=== PATIENT | female | born 1975 | race Caucasian/White ===

== ENCOUNTER 2016-08-22 08:40 | Emergency (ER) | payer SELFPAY ==
[~2016-08-22] VITALS: Ht 165.1 cm; Wt 101.6 kg
[2016-08-22] MEDS ORDERED: NF-LAMO200 PO (09:08)
[2016-08-22] MEDS ORDERED: ARPZ20T PO (09:08)
[2016-08-22] MEDS ORDERED: MELO15TA39 PO (09:08)
[2016-08-22] MEDS ORDERED: OXCA150T3 PO (09:08)
[2016-08-22] MEDS ORDERED: SERT100T PO (09:08)
[2016-08-22] MEDS: LIDOCAINE 1% INJ 20 ML (XYLOCAINE) VIAL ONE (10:40)
--- NOTE | 2016-08-22 10:47 | ED Integumentary General ---
General Chief Complaint: Bite-Animal/Human/Insect Stated Complaint: POSS SPIDER BITE LEFT LEG Nursing Triage Note: PT AMBULATES TO ROOM 9 CO OF SPIDER BITE TO L THIGH APPROX 10DAYS AGO, AREA IS REDDEND APPROX 8CM AND HAS OPEN AREA APPROX .5CM IN CENTER OF AREA. PT CO OF PAIN TO AREA Source: patient Exam Limitations: no limitations History of Present Illness Time seen by provider: 10:43 Initial Comments The patient is a 41-year-old white female who presents with a complaint of possible spider bite on her left thigh. She reports that this is been present for 10 days to 2 weeks. Has been getting larger. It drains some creamy material from time to time. It has become quite painful. She also states that she has had 2 previous MRSA boils. These were apparently in the armpits. Timing/Duration: week, getting worse Location: extremities Allergies and Home Medications Home Medications Aripiprazole 20 Mg Tablet, 20 MG PO BID, (Reported) Lamotrigine 200 Mg Tab, 200 MG PO BID, (Reported) Meloxicam 15 Mg Tablet, 15 MG PO DAILY, (Reported) Oxcarbazepine 150 Mg Tablet, 150 MG PO BID, (Reported) Sertraline HCl 100 Mg Tablet, 100 MG PO BID, (Reported) Constitutional: see HPI EENTM: no symptoms reported Respiratory: no symptoms reported Cardiovascular: no symptoms reported Gastrointestinal: no symptoms reported Genitourinary: no symptoms reported Skin: see HPI Past Tgblcmv-Fezzzc-Kvvoli Hx Patient Social History Alcohol Use: Denies Use Recreational Drug Use: No Smoking Status: Never a Smoker Recent Foreign Travel: No Contact w/Someone Who Travel: No Recent Infectious Disease Expo: No Immunizations Up To Date Tetanus Booster (TDap): Less than 5yrs Physical Exam Vital Signs Vital Sign - Last 12Hours 08/22/16 08:50 Temp 97.9 Pulse 78 Resp 18 B/P (MAP) 159/97 Pulse Ox 100 Capillary Refill : Less Than 3 Seconds General Appearance: mild distress HEENT: normal ENT inspection Neck: non-tender, full range of motion, supple, normal inspection Respiratory: chest non-tender, lungs clear, normal breath sounds, no respiratory distress, no accessory muscle use Comments There is a tennis ball sized red and painful somewhat fluctuant mass at the distal quadriceps. There is a central papule with opening and some serosanguineous fluid is expressed at palpation. Progress/Results/Core Measures Results/Orders My Orders Orders - COLT NIETO MD Lidocaine 1% Injection (Xylocaine 1% Inj (08/22/16 10:20) Vital Signs/I&O Vital Sign - Last 12Hours 08/22/16 08:50 Temp 97.9 Pulse 78 Resp 18 B/P (MAP) 159/97 Pulse Ox 100 Blood Pressure Mean: 117 Departure Communication Progress Notes The area is prepped with Hibiclens. 3 mL of 1 percent Xylocaine are instilled with a 25-gauge needle. The area is incised with an 11 scalpel blade material begins to flow immediately. Cultures are acquired. With squeezing considerable amount of sanguinopurulent material is evacuated. The area is explored with a hemostat and more material was obtained. His then packed with 10 inches or more of 1/2 inch iodoform gauze. Dressings were then applied. The patient was quite cooperative during the procedure. Impression Impression: Primary Impression: abscess likely MRSA Disposition: 01 HOME, SELF-CARE Condition: Improved Departure-Patient Inst. Decision time for Depature: 10:49 Referrals: NO,LOCAL PHYSICIAN (PCP) Primary Care Physician Patient Instructions: Methicillin-Resistant Staphylococcus aureus (MRSA) Add. Discharge Instructions: All discharge instructions reviewed with patient and/or family. Voiced understanding. Take antibiotic as prescribed. Keep wound clean and dry. Remove approximately 1 inch of the gauze daily and redress. Return to ER if needed for questions about healing. This would be called a wound check. Scripts Sulfamethoxazole/Trimethoprim (Bactrim Ds Tablet) 1 Each Tablet 1 EACH PO twice a day, #20 TAB Prov: COLT NIETO MD 08/22/16 COLT NIETO MD Aug 22, 2016 10:47
[2016-08-22] MEDS ORDERED: SULF1TAB35 PO (10:53)
[2016-08-22 11:04] VITALS: BP 142/88
[2016-08-23] MEDS ORDERED: CLIN300C11 PO (08:54)
[2016-08-23] MEDS ORDERED: HYDR-3812 PO (09:15)
== END 2016-08-22 11:04 | disposition home or self-care (01) ==
LOC: EDUNIT# 08:40 → ER 08:48
DX: L02.416 Cutaneous abscess of left lower limb (principal); Z86.14 Personal history of Methicillin resistant Staphylococcus aureus infection
CPT/HCPCS: 10060; 87070; 87077; 87186; 87205

== ENCOUNTER 2016-08-23 07:17 | Emergency (ER) | payer SELFPAY ==
[~2016-08-23] VITALS: Ht 165.1 cm; Wt 101.6 kg
[~2016-08-23 07:17] MED LIST: ARPZ20T PO; MELO15TA39 PO; NF-LAMO200 PO; OXCA150T3 PO; SERT100T PO; SULF1TAB35 PO
--- NOTE | 2016-08-23 08:53 | ED Integumentary General ---
General Chief Complaint: Skin/Wound Problems Stated Complaint: INFECTION IN LEG/FACIAL SWELLING Source: patient, family Exam Limitations: no limitations History of Present Illness Time seen by provider: 08:44 Initial Comments Patient was seen in the ER yesterday and had an abscess lanced in her left thigh just above the patella. She is change the dressings fine and started her Bactrim yesterday but today she feels that her face is swollen. She has some scabs on either side of her face and says she has cold sores from time to time. She is concerned that she is having quite a bit of pain from the site of abscess as well as she is worried about her face being swollen. She says she has no problems breathing or swallowing her own secretions does not feel scratchy or itchy throat. She has no tongue swelling and no dental pain or infection in her gums. She denies fever, nausea, vomiting, fatigue, rash. Allergies and Home Medications Allergies Coded Allergies: No Known Drug Allergies (Unverified , 08/23/16) Home Medications Aripiprazole 20 Mg Tablet, 20 MG PO BID, (Reported) Clindamycin HCl 300 Mg Capsule, 600 MG PO BID for 6 Days, #24 Ref 0 Prescribed by: TAYLA RUDD on 08/23/16 0854 Hydrocodone/Acetaminophen 1 Each Tablet, 1 EACH PO Q6H PRN for PAIN-MODERATE TO SEVERE, #10 Ref 0 Prescribed by: TAYLA RUDD on 08/23/16 0915 Lamotrigine 200 Mg Tab, 200 MG PO BID, (Reported) Meloxicam 15 Mg Tablet, 15 MG PO DAILY, (Reported) Oxcarbazepine 150 Mg Tablet, 150 MG PO BID, (Reported) Sertraline HCl 100 Mg Tablet, 100 MG PO BID, (Reported) Sulfamethoxazole/Trimethoprim 1 Each Tablet, 1 EACH PO twice a day, #20 Prescribed by: COLT NIETO on 08/22/16 1053 Constitutional: No chills, No diaphoresis, No dizziness, No fever, No malaise, No weakness EENTM: No blurred vision, No double vision, No ear pain, No eye pain, No hearing loss, No hoarseness, No mouth pain, No mouth swelling, No nose congestion, No throat swelling Respiratory: No dyspnea on exertion, No short of breath, No stridor, No wheezing Cardiovascular: No chest pain, No syncope Gastrointestinal: No abdominal pain, No melena, No nausea Genitourinary: No dysuria, No frequency Musculoskeletal: see HPI, other (incision site pain better than yesterday.) Skin: No pruritus, No rash Psychiatric/Neurological: Denies Headache, Denies Numbness, Denies Paresthesia Past Exidwki-Kseely-Jzzvjw Hx Patient Social History Alcohol Use: Denies Use Recreational Drug Use: No Recent Foreign Travel: No Contact w/Someone Who Travel: No Immunizations Up To Date Tetanus Booster (TDap): Less than 5yrs Physical Exam Vital Signs Vital Sign - Last 12Hours 08/23/16 08:05 Temp 97.5 Pulse 81 Resp 20 B/P (MAP) 126/81 Pulse Ox 99 Capillary Refill : General Appearance: WD/WN, no apparent distress HEENT: PERRL/EOMI, pharynx normal (no edema or swelling of the tongue or tonsils noted.), No pharyngeal erythema, other (case with mild swelling nontender on the right side especially. Sinuses nontender to palpation. No nasal discharge. No pain.) Neck: non-tender, normal inspection Cardiovascular: regular rate, rhythm, no edema Respiratory: lungs clear, no respiratory distress Gastrointestinal: non tender, soft Extremities: normal range of motion, other (clean dry dressing intact over the distal left thigh. Mildly tender to palpation.) Lymphatic: no adenopathy Progress/Results/Core Measures Results/Orders My Orders Orders - TAYLA RUDD Methylprednisolone Acetate Inj (Depo-Med (08/23/16 09:00) Medications Given in ED Current Medications Medications Dose Ordered Sig/Marcia Route Start Time Stop Time Status Last Admin Dose Admin Methylprednisolone Acetate 40 mg ONCE ONCE IM 08/23/16 09:00 08/23/16 09:01 DC 08/23/16 09:08 40 MG Vital Signs/I&O Vital Sign - Last 12Hours 08/23/16 08/23/16 08:05 09:17 Temp 97.5 97.5 Pulse 81 81 Resp 20 20 B/P (MAP) 126/81 Pulse Ox 99 99 Progress Note #1: Time: 08:49 Progress Note I explained to her this is unlikely traveling representative of a drug allergy but she would be okay to switch to a different antibiotic that'll give coverage against oral pathogens case this is related to dental. We'll also give her Depo-Medrol shot and gave her return precautions against swelling of airway swelling of tongue or inability to swallow or breathe without difficulty. Progress Note #2: Time: 12:11 Progress Note Pharmacy called back stating the patient cannot afford the clindamycin. Told her be okay to just supervisor opening and picking the pain medicine and continue taking the Bactrim. Strict return precautions given. Departure Impression Impression: Primary Impression: Swelling of right side of face Disposition: HOME, SELF-CARE Condition: Stable Departure-Patient Inst. Decision time for Depature: 08:50 Referrals: NO,LOCAL PHYSICIAN (PCP) Primary Care Physician Patient Instructions: Abscess Incision and Drainage (DC) Add. Discharge Instructions: Your facial swelling may just be a reaction to the antibiotics breaking up the bacteria efficiently. It probably does not represent a true allergy to Bactrim. If you're having worsening swelling to the point that you cannot breathe, swallow your secretions, or you feel that your tongue is swelling, or throat is itchy you should take Benadryl and return to the ER immediately. You may stop taking the Bactrim and start taking the clindamycin as soon as you pick it up. Take it with food. It would be reasonable also eat yogurt or take probiotics while on antibiotics. Follow-up within one week with your primary care physician for a wound recheck. All discharge instructions reviewed with patient and/or family. Voiced understanding. Scripts Hydrocodone/Acetaminophen (Hydrocodon -Acetaminophen 5-325) 1 Each Tablet 1 EACH PO Q6H Y for PAIN-MODERATE TO SEVERE, #10 TAB 0 Refills Prov: TAYLA RUDD 08/23/16 Clindamycin HCl (Clindamycin HCl) 300 Mg Capsule 600 MG PO BID for 6 Days, #24 CAP 0 Refills Prov: TAYLA RUDD 08/23/16 Copy Copies To 1: ALO CAMPBELL TITUS J Aug 23, 2016 08:53
[2016-08-23] MEDS ORDERED: CLIN300C11 PO (08:54)
[2016-08-23] MEDS ORDERED: methylPREDNISolone 40 MG/ML (DEPO MEDROL) VIAL IM ONE (09:00)
[2016-08-23] MEDS ORDERED: HYDR-3812 PO (09:15)
[2016-08-23 09:17] VITALS: BP 126/81
[2016-08-24] MEDS ORDERED: HYDR-3812 PO (11:29)
== END 2016-08-23 09:11 | disposition home or self-care (01) ==
LOC: EDUNIT# 07:17 → ER 07:19
DX: R22.0 Localized swelling, mass and lump, head (principal)
CPT/HCPCS: 99282

== ENCOUNTER 2016-08-24 08:49 | Emergency (ER) | payer SELFPAY ==
[~2016-08-24] VITALS: Ht 167.6 cm; Wt 99.8 kg
[~2016-08-24 08:49] MED LIST changes: +CLIN300C11 PO; +HYDR-3812 PO
--- NOTE | 2016-08-24 09:09 | ED Integumentary General ---
General Chief Complaint: Skin/Wound Problems Stated Complaint: R FACIAL SWELLING Source: patient Exam Limitations: no limitations History of Present Illness Time seen by provider: 09:07 Initial Comments Patient presents again with similar facial swelling as yesterday. She states is gotten worse and now has opened up along her lip and drained whitish fluid. She had a cold sore there a few days ago and she now feels an area of hardness on her right upper lip. She has not had any fevers chills nausea or vomiting. Boil on her left leg however is improving considerably. She is been cooperative taking her antibiotics and continue the Bactrim as she was unable to afford the clindamycin. Allergies and Home Medications Allergies Coded Allergies: No Known Drug Allergies (Unverified , 08/23/16) Home Medications Aripiprazole 20 Mg Tablet, 20 MG PO BID, (Reported) Clindamycin HCl 300 Mg Capsule, 600 MG PO BID for 6 Days, #24 Ref 0 Prescribed by: TAYLA RUDD on 08/23/16 0854 Hydrocodone/Acetaminophen 1 Each Tablet, 1 EACH PO Q6H PRN for PAIN-MODERATE TO SEVERE, #10 Ref 0 Prescribed by: TAYLA RUDD on 08/23/16 0915 Hydrocodone/Acetaminophen 1 Each Tablet, 1 EACH PO Q6H PRN for pain, #15 Ref 0 Prescribed by: TAYLA RUDD on 08/24/16 1129 Lamotrigine 200 Mg Tab, 200 MG PO BID, (Reported) Meloxicam 15 Mg Tablet, 15 MG PO DAILY, (Reported) Oxcarbazepine 150 Mg Tablet, 150 MG PO BID, (Reported) Sertraline HCl 100 Mg Tablet, 100 MG PO BID, (Reported) Sulfamethoxazole/Trimethoprim 1 Each Tablet, 1 EACH PO twice a day, #20 Prescribed by: COLT NIETO on 08/22/16 1053 Constitutional: No chills, No diaphoresis, No fever EENTM: see HPI, No ear pain, No eye pain, No hoarseness, No nose pain, No throat pain, No throat swelling Respiratory: No cough, No short of breath Cardiovascular: No palpitations, No syncope Gastrointestinal: No abdominal pain, No constipation, No diarrhea, No nausea Genitourinary: No discharge Musculoskeletal: No back pain, No joint pain Skin: see HPI Psychiatric/Neurological: Anxiety, Denies Headache, Denies Numbness, Denies Paresthesia Past Glpivhu-Qfemey-Hsialp Hx Patient Social History Alcohol Use: Occasionally Uses Recreational Drug Use: No Smoking Status: Current Someday Smoker Type Used: Cigarettes Recent Foreign Travel: No Contact w/Someone Who Travel: No Recent Hopitalizations: No Immunizations Up To Date Tetanus Booster (TDap): Less than 5yrs Surgeries Surgeries: Adenoidectomy, Tonsillectomy Physical Exam Vital Signs Vital Sign - Last 12Hours 08/24/16 08:55 Temp 98.5 Pulse 74 Resp 18 B/P (MAP) 148/87 Pulse Ox 98 Capillary Refill : General Appearance: WD/WN, no apparent distress HEENT: PERRL/EOMI, TMs normal, other (bilateral cillosis with red swollen right sided upper lips of her mouth and a small punctate opening with whitish fluid expressed.) Neck: non-tender, supple, normal inspection Cardiovascular: normal peripheral pulses, regular rate, rhythm Respiratory: lungs clear, no respiratory distress Gastrointestinal: normal bowel sounds, soft 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 Bedside US) I&D : Blade Size: 11 I & D Procedure: betadine prep (alcohol) Progress 50-50 mix of 1% lidocaine with epinephrine and 0.5% Marcaine without epinephrine. Injected 2 cc in the lip and 5 cc at the alveolar nerve on the right mandible. site was then cleaned with Betadine and alcohol. 11 blade was used to gopi a 0.4 cm long incision and approximately 2 cc of purulent material was expressed. Site was irrigated with 5 cc of normal saline and dressed with a light bandage.the patient tolerated the procedure very well. Progress bedside ultrasound of right lip with a small 1-3 cc pocket of fluid superior to the orbicularis jaime right lateral face. Consistent with abscess Progress/Results/Core Measures Results/Orders My Orders Orders - TAYLA RUDD Lidocaine/Epi 2% 1:100,000 (Xylocaine/Ep (08/24/16 09:15) Bupivacaine 0.5% Injection (Sensorcaine (08/24/16 09:15) Fentanyl Injection (Sublimaze Injection (08/24/16 09:15) Medications Given in ED Current Medications Medications Dose Ordered Sig/Marcia Route Start Time Stop Time Status Last Admin Dose Admin Bupivacaine HCl 30 ml ONCE ONCE INJ 08/24/16 09:15 08/24/16 09:16 DC 08/24/16 09:20 30 ML Fentanyl Citrate 25 mcg Q1H PRN IM 08/24/16 09:15 08/24/16 11:41 DC 08/24/16 09:20 25 MCG Lidocaine/ Epinephrine 20 ml ONCE ONCE INJ 08/24/16 09:15 08/24/16 09:16 DC 08/24/16 09:21 20 ML Vital Signs/I&O Vital Sign - Last 12Hours 08/24/16 08/24/16 08:55 11:40 Temp 98.5 Pulse 74 74 Resp 18 18 B/P (MAP) 148/87 Pulse Ox 98 98 Departure Impression Impression: Primary Impression: Abscess Disposition: 01 HOME, SELF-CARE Condition: Improved Departure-Patient Inst. Decision time for Depature: 11:27 Referrals: NO,LOCAL PHYSICIAN (PCP) Primary Care Physician Patient Instructions: Abscess Incision and Drainage (DC) Add. Discharge Instructions: Please continue the next 7-8 days of your antibiotics until they're completed. Keep the wound clean and dry with soap and water. Do not occlude the wound with Vaseline or any kind of antibiotic creams. A light gauze dressing or Band-Aid will be sufficient. Change dressing as needed for soilage. Follow-up if you're having fevers, nausea, vomiting or worsening symptoms. You will be given pain meds to be taken if Tylenol and Motrin and ice do not work. All discharge instructions reviewed with patient and/or family. Voiced understanding. Scripts Hydrocodone/Acetaminophen (Hydrocodon -Acetaminophen 5-325) 1 Each Tablet 1 EACH PO Q6H Y for pain, #15 TAB 0 Refills Prov: TAYLA RUDD 08/24/16 Work/School Note: Work Release Form Date Seen in the Emergency Department: Aug 24, 2016 Return to Work: Aug 26, 2016 TAYLA RUDD Aug 24, 2016 09:09
[2016-08-24] MEDS ORDERED: fentaNYL INJECTION 100 MCG/2 ML AMP IM PRN (09:15)
[2016-08-24] MEDS ORDERED: BUPIVACAINE 0.5% 30 ML (SENSORCAINE) VIAL INJ ONE (09:15)
[2016-08-24] MEDS ORDERED: LIDOCAINE/EPI 2% 1:100,00 (XYLOCAINE) 20 ML VIAL INJ ONE (09:15)
[2016-08-24] MEDS ORDERED: HYDR-3812 PO (11:29)
[2016-08-24 11:40] VITALS: BP 148/87
== END 2016-08-24 11:40 | disposition home or self-care (01) ==
LOC: EDUNIT# 08:49 → ER 08:50
DX: K13.0 Diseases of lips (principal); F17.210 Nicotine dependence, cigarettes, uncomplicated
CPT/HCPCS: 10060

== ENCOUNTER 2016-11-02 02:45 | Emergency (ER) | payer OTHER ==
[~2016-11-02] VITALS: Ht 165.1 cm; Wt 101.2 kg
[2016-11-02 03:36] LABS: BILIRUBIN,URINE NEGATIVE (NEGATIVE); KETONES,URINE NEGATIVE (NEGATIVE); LEUKOCYTE ESTERASE ,URINE NEGATIVE (NEGATIVE); NITRITE,URINE NEGATIVE (NEGATIVE); PH,URINE 6 (5-9); PROTEIN,URINE NEGATIVE (NEGATIVE); UROBILINOGEN,URINE NORMAL (NORMAL)
[2016-11-02 03:54] LABS: BASOPHILS # (AUTO) 0.1 10^3/uL (0.0-0.1); BASOPHILS % (AUTO) 1 % (0-10); EOSINOPHILS # (AUTO) 0.3 10^3/uL (0.0-0.3); EOSINOPHILS % (AUTO) 3 % (0-10); LYMPHOCYTES # (AUTO) 2.5 X 10^3 (1.0-4.0); LYMPHOCYTES % (AUTO) 23 % (12-44); MEAN CORPUSCULAR HEMOGLOBIN 31 PG (25-34); MEAN CORPUSCULAR HGB CONC 34 G/DL (32-36); MEAN CORPUSCULAR VOLUME 94 FL (80-99); MEAN PLATELET VOLUME 10.1 FL (7.4-10.4); MONOCYTES # (AUTO) 0.9 X 10^3 (0.0-1.0); MONOCYTES % (AUTO) 8 % (0-12); NEUTROPHILS # (AUTO) 7.2 X 10^3 (1.8-7.8); NEUTROPHILS % (AUTO) 66 % (42-75); PLATELET COUNT 256 10^3/uL (130-400); RED BLOOD COUNT 4.53 10^6/uL (4.35-5.85)
[2016-11-02] MEDS ORDERED: ONDANSETRON 4 MG/2 ML (SDV) Z0FRAN IVP ONE (04:00)
[2016-11-02] MEDS ORDERED: fentaNYL INJECTION 100 MCG/2 ML AMP IVP ONE (04:00)
[2016-11-02 04:19] LABS: ALANINE AMINOTRANSFERASE 12 U/L (0-55); ALBUMIN 4.1 GM/DL (3.2-4.5); ANION GAP 12 MMOL/L (5-14); ASPARTATE AMINO TRANSFERASE 15 U/L (5-34); BILIRUBIN,TOTAL 0.3 MG/DL (0.1-1.0); BLOOD UREA NITROGEN 14 MG/DL (7-18); BUN/CREATININE RATIO 20; CALCIUM 9.5 MG/DL (8.5-10.1); CARBON DIOXIDE 18 MMOL/L (21-32); CHLORIDE 108 MMOL/L (98-107); CREATININE SERUM 0.69 MG/DL (0.60-1.30); GFR ESTIMATED > 60; GLUCOSE 101 MG/DL (70-105); LIPASE 823 U/L (8-78); POTASSIUM 3.9 MMOL/L (3.6-5.0); SODIUM 138 MMOL/L (135-145); TOTAL PROTEIN 7.1 GM/DL (6.4-8.2)
--- NOTE | 2016-11-02 04:29 | ED Abdominal Pain ---
General Chief Complaint: Abdominal/GI Problems Stated Complaint: R AB PAIN Nursing Triage Note: Presents to ER with hx of abd pain in back that moved to midline abd right side a few hours ago. Sepsis Screen: No Definite Risk Source of Information: Patient Exam Limitations: No Limitations History of Present Illness Time Seen By Provider: 02:57 Initial Comments This 41-year-old woman presents to the emergency room with complaints of pain that started in the right lower back and migrated to the right lower quadrant. She reports her pain as 10. Pain started couple of hours prior to arrival. She reports having diarrhea for a few days. She is nauseated without vomiting. She denies fever. Denies dysuria or hematuria. Allergies and Home Medications Allergies Coded Allergies: No Known Drug Allergies (Unverified , 08/23/16) Home Medications Aripiprazole 20 Mg Tablet, 20 MG PO DAILY, (Reported) Desvenlafaxine Succinate 100 Mg Tab.er.24h, 100 MG PO DAILY, (Reported) Lamotrigine 200 Mg Tab, 200 MG PO BID, (Reported) Levothyroxine Sodium 50 Mcg Tablet, 50 MCG PO DAILY, (Reported) Metformin HCl 1,000 Mg Tablet, 1,000 MG PO BID, (Reported) Pantoprazole Sodium 40 Mg Granpkt.dr, 40 MG PO DAILY, (Reported) Sertraline HCl 100 Mg Tablet, 100 MG PO BID, (Reported) Trazodone HCl 300 Mg Tablet, 300 MG PO HS, (Reported) [Pristiq] , (Reported) Review of Systems Constitutional: no symptoms reported EENTM: No Symptoms Reported Respiratory: No Symptoms Reported Cardiovascular: No Symptoms Reported Gastrointestinal: See HPI Genitourinary: No Symptoms Reported Musculoskeletal: no symptoms reported Skin: no symptoms reported Psychiatric/Neurological: No Symptoms Reported Endocrine: No Symptoms Reported Past Rneojvy-Uizybe-Axstnk Hx Patient Social History Alcohol Use: Denies Use Recreational Drug Use: No Smoking Status: Current Everyday Smoker Type Used: Cigarettes 2nd Hand Smoke Exposure: Yes Recent Foreign Travel: No Contact w/Someone Who Travel: No Recent Infectious Disease Expo: No Recent Hopitalizations: No Immunizations Up To Date Tetanus Booster (TDap): Less than 5yrs Seasonal Allergies Seasonal Allergies: No Surgeries HX Surgeries: Yes Surgeries: Adenoidectomy, Section, Tonsillectomy Respiratory Hx Respiratory Disorders: No Cardiovascular Hx Cardiac Disorders: No Neurological Hx Neurological Disorders: No Reproductive System : No Female Reproductive Disorders: Polycystic Ovarian Dis Genitourinary Hx Genitourinary Disorders: No Gastrointestinal Hx Gastrointestinal Disorders: Yes Gastrointestinal Disorders: Gastroesophageal Reflux Musculoskeletal Hx Musculoskeletal Disorders: No Endocrine Hx Endocrine Disorders: Yes Endocrine Disorders: Hypothyroidsim HEENT HX ENT Disorders: No Cancer Hx Cancer: No Psychosocial Hx Psychiatric Problems: Yes Behavioral Health Disorders: Sleep Difficulties, Bipolar, Depression Physical Exam Vital Signs VS - Last 72 Hours, by Label 11/02/16 11/02/16 03:25 04:03 Temp 98.5 98.5 Pulse 84 Resp 20 B/P (MAP) 140/82 Pulse Ox 96 O2 Delivery Room Air Capillary Refill : Less Than 3 Seconds General Appearance: WD/WN, mild distress HEENT: PERRL/EOMI, normal ENT inspection Neck: normal inspection Respiratory: lungs clear, normal breath sounds, no respiratory distress, no accessory muscle use Cardiovascular: regular rate, rhythm, no edema, no murmur Gastrointestinal: normal bowel sounds, soft, tenderness (scattered tenderness throughout the abdomen most prominent in the central abdomen and epigastrium), other (abdominal bruit heard throughout the abdomen) Extremities: normal inspection, no pedal edema Back: normal inspection, no CVA tenderness Neurologic/Psychiatric: freedom of information officer II-XII nml as tested, no motor/sensory deficits, alert, normal mood/affect, oriented x 3 Skin: normal color, warm/dry Progress/Results/Core Measures Results/Orders Lab Results Laboratory Tests Test 11/02/16 03:30 11/02/16 03:40 Range/Units Urine Color YELLOW Urine Clarity CLEAR Urine pH 6 5-9 Urine Specific Keller 1.015 L 1.016-1.022 Urine Protein NEGATIVE NEGATIVE Urine Glucose (UA) NEGATIVE NEGATIVE Urine Ketones NEGATIVE NEGATIVE Urine Nitrite NEGATIVE NEGATIVE Urine Bilirubin NEGATIVE NEGATIVE Urine Urobilinogen NORMAL NORMAL MG/DL Urine Leukocyte Esterase NEGATIVE NEGATIVE Urine RBC (Auto) NEGATIVE NEGATIVE Urine RBC NONE /HPF Urine WBC NONE /HPF Urine Squamous Epithelial Cells 5-10 /HPF Urine Crystals NONE /LPF Urine Bacteria TRACE /HPF Urine Casts NONE /LPF Urine Mucus NEGATIVE /LPF Urine Culture Indicated NO White Blood Count 11.0 4.3-11.0 10^3/uL Red Blood Count 4.53 4.35-5.85 10^6/uL Hemoglobin 14.2 11.5-16.0 G/DL Hematocrit 42 35-52 % Mean Corpuscular Volume 94 80-99 FL Mean Corpuscular Hemoglobin 31 25-34 PG Mean Corpuscular Hemoglobin Concent 34 32-36 G/DL Red Cell Distribution Width 13.0 10.0-14.5 % Platelet Count 256 130-400 10^3/uL Mean Platelet Volume 10.1 7.4-10.4 FL Neutrophils (%) (Auto) 66 42-75 % Lymphocytes (%) (Auto) 23 12-44 % Monocytes (%) (Auto) 8 0-12 % Eosinophils (%) (Auto) 3 0-10 % Basophils (%) (Auto) 1 0-10 % Neutrophils # (Auto) 7.2 1.8-7.8 X 10^3 Lymphocytes # (Auto) 2.5 1.0-4.0 X 10^3 Monocytes # (Auto) 0.9 0.0-1.0 X 10^3 Eosinophils # (Auto) 0.3 0.0-0.3 10^3/uL Basophils # (Auto) 0.1 0.0-0.1 10^3/uL Sodium Level 138 135-145 MMOL/L Potassium Level 3.9 3.6-5.0 MMOL/L Chloride Level 108 H 98-107 MMOL/L Carbon Dioxide Level 18 L 21-32 MMOL/L Anion Gap 12 5-14 MMOL/L Blood Urea Nitrogen 14 7-18 MG/DL Creatinine 0.69 0.60-1.30 MG/DL Estimat Glomerular Filtration Rate > 60 BUN/Creatinine Ratio 20 Glucose Level 101 70-105 MG/DL Calcium Level 9.5 8.5-10.1 MG/DL Total Bilirubin 0.3 0.1-1.0 MG/DL Aspartate Amino Transf (AST/SGOT) 15 5-34 U/L Alanine Aminotransferase (ALT/SGPT) 12 0-55 U/L Alkaline Phosphatase 31 L 40-136 U/L Total Protein 7.1 6.4-8.2 GM/DL Albumin 4.1 3.2-4.5 GM/DL Lipase 823 H 8-78 U/L My Orders Orders - NANCI CASSIDY MD Ua Culture If Indicated (11/02/16 02:57) Cbc With Automated Diff (11/02/16 03:48) Comprehensive Metabolic Panel (11/02/16 03:48) Lipase (11/02/16 03:48) Saline Lock/Iv-Start (11/02/16 03:48) Fentanyl Injection (Sublimaze Injection (11/02/16 04:00) Ondansetron Injection (Zofran Injectio (11/02/16 04:00) Ct Abdomen/Pelvis W (11/02/16 03:57) Iohexol Injection (Omnipaque 350 Mg/Ml 1 (11/02/16 04:30) Ns (Ivpb) (Sodium Chloride 0.9% Ivpb Bag (11/02/16 04:30) Us Gallbladder [address] (11/02/16 05:26) Medications Given in ED Current Medications Medications Dose Ordered Sig/Marcia Route Start Time Stop Time Status Last Admin Dose Admin Fentanyl Citrate 50 mcg ONCE ONCE IVP 11/02/16 04:00 11/02/16 04:01 DC 11/02/16 04:03 50 MCG Iohexol 100 ml ONCE ONCE IV 11/02/16 04:30 11/02/16 04:31 DC 11/02/16 04:26 100 ML Ondansetron HCl 4 mg ONCE ONCE IVP 11/02/16 04:00 11/02/16 04:01 DC 11/02/16 04:03 4 MG Sodium Chloride 100 ml ONCE ONCE IV 11/02/16 04:30 11/02/16 04:31 DC 11/02/16 04:26 80 ML Vital Signs/I&O Vital Sign - Last 12Hours 11/02/16 11/02/16 03:25 04:03 Temp 98.5 98.5 Pulse 84 Resp 20 B/P (MAP) 140/82 Pulse Ox 96 O2 Delivery Room Air Blood Pressure Mean: 101 Point of Care Testing Urine -Bedside: Negative Progress Note #1: Time: 04:28 Progress Note Patient seen and examined. Fentanyl and Zofran ordered for symptom management. Labs reviewed. Lipase is elevated suggestive of pancreatitis. CT of the abdomen and pelvis is pending. Progress Note #2: Time: 05:31 Progress Note There is questionable gallbladder wall thickening and/or trace pericholecystic fluid. No CT evidence of cholelithiasis. Acute cholecystitis cannot be completely ruled out. Radiologist is calling for right upper quadrant ultrasound for further evaluation. Patient was noted to have point tenderness in the right upper quadrant on reexamination. She also reports having difficulty after eating certain foods recently. She has been previously told she has gallbladder problems. Ultrasound has been ordered to help determine if patient should be admitted to the primary care service for pancreatitis or to surgery for acute cholecystitis. Patient is presently resting comfortably. Progress Note #3: Progress Note Gallbladder ultrasound discussed with the mine technician who reports gallbladder wall thickening and pericholecystic fluid as well as numerous stones. Case reviewed with Dr. Lopez. Admission with antibiotics, npo status, and IV fluids was recommended. Zosyn was started in the emergency room. Diagnostic Imaging Diagonstic Imaging: CT Plain Films/CT/US/NM/MRI: abdomen, pelvis Comments CT abdomen and pelvis with contrast viewed by me and [employer] report reviewed. There is probable thickened vague of the proximal small bowel loops containing. Colitis material. Subtle adjacent fatty infiltration is likely present. Findings are suggestive of enteritis secondary to infectious versus inflammatory etiology with reactive ileus. Questionable gallbladder wall thickening and/or trace pericholecystic fluid no CT evidence of cholelithiasis. Possibility of acute cholecystitis is not ruled out. Right upper quadrant ultrasound is recommended. Departure Impression Impression: Primary Impression: Acute cholecystitis Additional Impressions: Acute pancreatitis Qualified Codes: K85.10 - Biliary acute pancreatitis without necrosis or infection Cholelithiasis Qualified Codes: K80.00 - Calculus of gallbladder with acute cholecystitis without obstruction Disposition: 09 ADMITTED INPATIENT Condition: Improved Admissions Decision to Admit Reason: Admit from ER (General) Decision to Admit/Date: Nov 02, 2016 Time/Decision to Admit Time: 04:25 Departure-Patient Inst. Referrals: IRENE RENEE (PCP/Family) Primary Care Physician NANCI CASSIDY MD Nov 02, 2016 04:29
[2016-11-02] MEDS ORDERED: NS 100 ML (IVPB) BAG IV ONE (04:30)
[2016-11-02] MEDS ORDERED: IOHEXOL 350 MG/ML 100 ML (OMNIPAQUE 350) VIAL IV ONE (04:30)
[2016-11-02] MEDS ORDERED: TRAZ300T3 PO (04:31)
[2016-11-02] MEDS ORDERED: PANT40SU PO (04:31)
[2016-11-02] MEDS ORDERED: DESV100T PO (04:31)
[2016-11-02] MEDS ORDERED: Pristiq (04:31)
[2016-11-02] MEDS ORDERED: LEVO50TA PO (04:31)
[2016-11-02] MEDS ORDERED: METF1000 PO (04:31)
[2016-11-02] MEDS ORDERED: PIPERACILLIN SODIUM/TAZOBACTAM 4.5 GM in NS (IVPB) 100 ML IV ONE (06:30)
[2016-11-02 07:00] VITALS: BP 140/82
--- NOTE | 2016-11-02 07:16 | Diagnostic Imaging Report ---
PROCEDURE: CT abdomen and pelvis with contrast. TECHNIQUE: Multiple contiguous axial images were obtained through the abdomen and pelvis after administration of intravenous contrast. INDICATION: Abdominal pain with nausea and diarrhea. FINDINGS: The heart size is normal. The lung bases are clear. The liver is normal in size. The gallbladder is mildly hydropic. There is questionable mild gallbladder wall thickening. There also appears to be cholelithiasis. The spleen is normal. The pancreas, adrenal glands and kidneys are unremarkable. The aorta is nonaneurysmal. The evaluation of the small bowel is limited due to the lack of oral contrast material. There is questionable mucosal thickening of proximal small bowel loops, some of which measure up to 3 cm and contains fecalized material. There is questionable adjacent inflammatory stranding within the mesentery. Constellation of findings is suggestive of enteritis possibly secondary to an infectious and/or inflammatory etiology with mild ileus. There is a 1.9 cm right hemorrhagic ovarian cyst. There is no other pelvic mass adenopathy or free fluid. The osseous structures are unremarkable. The bladder is unremarkable. IMPRESSION: Mild mucosal thickening in the small bowel which measures up to 3 cm and contains fecalized material. There is questionable mild inflammatory stranding about the bowel loops. This constellation of findings is suggestive of enteritis, possibly infectious and/or inflammatory. Recommend clinical correlation. Mildly hydropic gallbladder with gallbladder wall thickening and probable tiny stone in the gallbladder. Cholecystitis cannot be excluded. Recommend clinical correlation and, if warranted, follow-up with a right quadrant ultrasound. A 1.9 cm hemorrhagic right ovarian cyst. This would be better evaluated with a pelvic ultrasound Dictated by: Dictated on workstation # [id number]
--- NOTE | 2016-11-02 07:43 | Diagnostic Imaging Report ---
PROCEDURE: US Gallbladder. TECHNIQUE: Multiple real-time grayscale images were obtained over the right upper quadrant in various projections. INDICATION: Abdominal pain, pancreatitis. FINDINGS: The liver is normal in size without focal lesions. There is cholelithiasis. There is gallbladder wall thickening up to 3 mm. There is pericholecystic fluid. The common bile duct is obscured by bowel gas. The visualized portions of the pancreas are unremarkable. The right kidney is normal. There is no ascites. IMPRESSION: Cholelithiasis, gallbladder wall thickening and some pericholecystic fluid. Acute cholecystitis cannot be excluded. Recommend clinical correlation. Dictated by: Dictated on workstation # [id number]
[2016-12-04] MEDS ORDERED: DOCU-143 PO (13:00)
[2016-12-04] MEDS ORDERED: HYDR-3812 PO (13:00)
== END 2016-11-02 07:00 | disposition left against medical advice (07) ==
LOC: EDUNIT# 02:45 → ER 02:48 → UNDOADMIN 06:30 → 4TH 06:30 → ER 07:00
DX: K80.00 Calculus of gallbladder with acute cholecystitis without obstruction (principal); K85.90 Acute pancreatitis without necrosis or infection, unspecified; E03.9 Hypothyroidism, unspecified; K21.9 Gastro-esophageal reflux disease without esophagitis; F31.9 Bipolar disorder, unspecified; G47.9 Sleep disorder, unspecified; F17.210 Nicotine dependence, cigarettes, uncomplicated; Z90.89 Acquired absence of other organs; Z79.84 Long term (current) use of oral hypoglycemic drugs; Z87.42 Personal history of other diseases of the female genital tract
CPT/HCPCS: 36415; 74177; 76705; 80053; 80306; 81000; 83690; 84703; 85025; 96374; 96375

== ENCOUNTER 2016-11-02 09:24 | Emergency (ER) | payer OTHER ==
[~2016-11-02] VITALS: Ht 198.1 cm; Wt 99.8 kg
[~2016-11-02 09:24] MED LIST changes: +DESV100T PO; +LEVO50TA PO; +METF1000 PO; +PANT40SU PO; +Pristiq; +TRAZ300T3 PO
[2016-11-02 10:16] VITALS: BP 126/77
[2016-12-04] MEDS ORDERED: HYDR-3812 PO (13:00)
[2016-12-04] MEDS ORDERED: DOCU-143 PO (13:00)
== END 2016-11-02 10:16 | disposition left against medical advice (07) ==
LOC: EDUNIT# 09:24 → ER 09:30
DX: R19.8 Other specified symptoms and signs involving the digestive system and abdomen (principal)
CPT/HCPCS: 80306; 99282

== ENCOUNTER 2016-12-01 05:36 | Outpatient (CLI) | payer OTHER ==
[~2016-12-01] VITALS: Ht 165.1 cm; Wt 101.2 kg
[2016-12-01] MEDS ORDERED: MELO15TA39 PO (14:59)
== END 2016-12-01 15:16 ==
LOC: PREOP 05:36
PROVIDERS: ATTEND Surgery
DX: Z01.818 Encounter for other preprocedural examination (principal); K80.20 Calculus of gallbladder without cholecystitis without obstruction

== ENCOUNTER 2016-12-04 08:47 | Day surgery (SDC) | payer SELFPAY ==
[~2016-12-04] VITALS: Ht 165.1 cm; Wt 101.2 kg
--- OUTSIDE RECORDS SUMMARY | 2016-12-04 09:01 | XMS REPORT ---
Author Author SARAI DELA CRUZ [facility] Address [address] [place] [address] Care Team Providers Care Flexographic Press Operator Name Role Phone SARAI DELA CRUZ Unavailable PROBLEMS Type Condition ICD9-CM Code [id number] Code Onset Dates Condition Status SNOMED Code Problem Allergic rhinitis, unspecified allergic rhinitis trigger, unspecified rhinitis seasonality J30.9 Active 87060102 Problem Cervical disc herniation M50.20 Active 428375595 Problem Hypothyroidism (acquired) E03.9 Active 167599687 Problem Lumbar degenerative disc disease M51.36 Active 22592626 Problem Bipolar affective disorder, current episode mixed, current episode severity unspecified F31.60 Active 382944421 Problem Attention deficit disorder F98.8 Active 616234059 Problem Calculus of gallbladder without cholecystitis without obstruction K80.20 Active 633305821 Problem PCOS (polycystic ovarian syndrome) E28.2 Active 07354594 Problem Chronic pain syndrome G89.4 Active 869446185 Problem Attention deficit disorder of adult F98.8 Active 636476657 Problem Gastroesophageal reflux disease with esophagitis K21.0 Active 294021332 Problem Heart murmur, systolic R01.1 Active 08147587 ALLERGIES No Known Allergies SOCIAL HISTORY Never Assessed PLAN OF CARE Activity Details Follow Up record request from Dr. Moseley in [place], [place], 2 Weeks Reason: VITAL SIGNS Height 65 in 2016-04-16 Weight 225 lbs 2016-04-16 Temperature 97.2 degrees Fahrenheit 2016-04-16 Heart Rate 126 bpm 2016-04-16 Respiratory Rate 16 2016-04-16 BMI 37.44 kg/m2 2016-04-16 Blood pressure systolic 138 mmHg 2016-04-16 Blood pressure diastolic 84 mmHg 2016-04-16 MEDICATIONS Medication Instructions Dosage Frequency Start Date End Date Duration Status Meloxicam 15 MG Orally Once a day 1 tablet 24h Active Lamictal 200 MG Orally Twice a day 1 tablet 12h 30 days Active Trileptal 150 MG Active Abilify 5 mg Orally Once a day 4 tablets 24h Jan, 90 days Active Pristiq 100 MG Orally Once a day 1 tablet 24h 30 days Active Synthroid 50 MCG Orally Once a day 1 tablet on an empty stomach in the morning 24h 30 days Active Protonix 20 MG Orally Once a day 2 tablets 24h Active Tizanidine HCl 4 MG Orally Three times a day 1 tablet as needed 8h 30 days Active Trazodone HCl 100 MG Orally Once a day 1 tablet at bedtime 24h 30 days Active Percocet 7.5-325 MG Orally every 6 hrs 1 tablet as needed 6h Mar, Active Adderall 30 MG Orally Once a day 1 tablet in the morning 24h 30 days Active Zoloft 100 MG Orally 2 times a day 1 tablet 12h 30 days Active RESULTS No Results PROCEDURES No Known procedures IMMUNIZATIONS No Known Immunizations MEDICAL (GENERAL) HISTORY Type Description Date Medical History bipolar I Disorder Medical History migraine headaches Medical History Hypothyroidism Medical History arthritis Medical History Cervical Herniated Disc Medical History bronchitis Medical History Neck Pain Medical History ADHD Medical History GERD Medical History Lumbar Herniated Disc Disease Medical History Night Terrors Medical History PCOS Surgical History c section x 2 Surgical History I&D of abcess 08/22/16 Hospitalization History pancreatitis 07/2015
--- OUTSIDE RECORDS SUMMARY | 2016-12-04 09:03 | XMS REPORT ---
Author Author ANAND KNUTSON [facility] Address [address] [place] [address] Care Team Providers Care Litigation Attorney Associate Name Role Phone ANAND KNUTSON Unavailable PROBLEMS Type Condition ICD9-CM Code [id number] Code Onset Dates Condition Status SNOMED Code Problem Attention deficit disorder F98.8 Active 608692639 Problem Cervical disc herniation M50.20 Active 155444796 Problem Allergic rhinitis, unspecified allergic rhinitis trigger, unspecified rhinitis seasonality J30.9 Active 22508204 Problem Lumbar degenerative disc disease M51.36 Active 07903907 Problem Bipolar affective disorder, current episode mixed, current episode severity unspecified F31.60 Active 683801668 Problem PCOS (polycystic ovarian syndrome) E28.2 Active 41265239 Problem Gastroesophageal reflux disease with esophagitis K21.0 Active 163995452 Problem Attention deficit disorder of adult F98.8 Active 038809740 Problem Hypothyroidism (acquired) E03.9 Active 733998065 Problem Heart murmur, systolic R01.1 Active 41160415 Problem Chronic pain syndrome G89.4 Active 419509538 ALLERGIES Substance Reaction Event Type Date Status N.K.D.A. Unknown Non Drug Allergy Mar, Unknown SOCIAL HISTORY No smoking Hx information available PLAN OF CARE Activity Details Follow Up 4 Weeks Reason:recheck medical condition VITAL SIGNS Height 65 in 2016-03-20 Weight 233.0 lbs 2016-03-20 Temperature 98.4 degrees Fahrenheit 2016-03-20 Heart Rate 82 bpm 2016-03-20 Respiratory Rate 16 2016-03-20 BMI 38.77 kg/m2 2016-03-20 Blood pressure systolic 152 mmHg 2016-03-20 Blood pressure diastolic 92 mmHg 2016-03-20 MEDICATIONS Medication Instructions Dosage Frequency Start Date End Date Duration Status Trileptal 150 MG Active Abilify 5 mg Orally Once a day 4 tablets 24h Jan, Active Trazodone HCl 100 MG Orally Once a day 1 tablet at bedtime 24h 30 days Active Adderall 30 MG Orally Once a day 1 tablet in the morning 24h 30 days Active Tizanidine HCl 4 MG Orally Three times a day 1 tablet as needed 8h 30 days Active Pristiq 100 MG Orally Once a day 1 tablet 24h 30 days Active Meloxicam 15 MG Orally Once a day 1 tablet 24h Active Synthroid 50 MCG Orally Once a day 1 tablet on an empty stomach in the morning 24h 30 days Active Protonix 20 MG Orally Once a day 2 tablets 24h Active Lamictal 200 MG Orally Twice a day 1 tablet 12h 30 days Active Zoloft 100 MG Orally 2 times a day 1 tablet 12h 30 days Active Gabapentin 100 MG Orally 2 times a day 3 capsules 12h Jan, Active Percocet 7.5-325 MG Orally every 6 hrs 1 tablet as needed 6h Mar, Active RESULTS Name Result Date Reference Range TSH 2016-03-20 TSH 1.090 0.450-4.500 CBC 2016-03-20 WBC 9.1 3.4-10.8 RBC 4.65 3.77-5.28 Hemoglobin 14.3 11.1-15.9 Hematocrit 42.4 34.0-46.6 MCV 91 79-97 MCH 30.8 26.6-33.0 MCHC 33.7 31.5-35.7 RDW 13.1 12.3-15.4 Platelets 310 150-379 Neutrophils 54 Lymphs 36 Monocytes 8 Eos 2 Basos 0 Neutrophils (Absolute) 4.9 1.4-7.0 Lymphs (Absolute) 3.3 0.7-3.1 Monocytes(Absolute) 0.7 0.1-0.9 Eos (Absolute) 0.2 0.0-0.4 Baso (Absolute) 0.0 0.0-0.2 Immature Granulocytes 0 Immature Grans (Abs) 0.0 0.0-0.1 CMP 2016-03-20 Glucose, Serum 68 65-99 BUN 10 6-20 Creatinine, Serum 0.56 0.57-1.00 eGFR If NonAfricn Am 119 >59 eGFR If Africn Am 137 >59 BUN/Creatinine Ratio 18 8-20 Sodium, Serum 134 134-144 Potassium, Serum 4.9 3.5-5.2 Chloride, Serum 96 96-106 Carbon Dioxide, Total 24 18-29 Calcium, Serum 9.0 8.7-10.2 Protein, Total, Serum 7.1 6.0-8.5 Albumin, Serum 4.5 3.5-5.5 Globulin, Total 2.6 1.5-4.5 A/G Ratio 1.7 1.1-2.5 Bilirubin, Total <0.2 0.0-1.2 Alkaline Phosphatase, S 41 39-117 AST (SGOT) 11 0-40 ALT (SGPT) 11 0-32 PROCEDURES Procedure Date Ordered Related Diagnosis Body Site Office Visit, Est Pt., Level 4 Mar 20, 2016 IMMUNIZATIONS No Known Immunizations
--- OUTSIDE RECORDS SUMMARY | 2016-12-04 09:03 | XMS REPORT ---
Author Author SARAI DELA CRUZ Organization [facility] Address [address] [place] [address] Care Team Providers Care Weekend Receptionist Name Role Phone SARAI DELA CRUZ Unavailable PROBLEMS Type Condition ICD9-CM Code [id number] Code Onset Dates Condition Status SNOMED Code Problem Allergic rhinitis, unspecified allergic rhinitis trigger, unspecified rhinitis seasonality J30.9 Active 16346491 Problem Cervical disc herniation M50.20 Active 048897938 Problem Hypothyroidism (acquired) E03.9 Active 404171949 Problem Lumbar degenerative disc disease M51.36 Active 65269582 Problem Bipolar affective disorder, current episode mixed, current episode severity unspecified F31.60 Active 921544044 Problem Attention deficit disorder F98.8 Active 295000281 Problem Calculus of gallbladder without cholecystitis without obstruction K80.20 Active 335184121 Problem PCOS (polycystic ovarian syndrome) E28.2 Active 84936476 Problem Chronic pain syndrome G89.4 Active 181976275 Problem Attention deficit disorder of adult F98.8 Active 169092887 Problem Gastroesophageal reflux disease with esophagitis K21.0 Active 205147020 Problem Heart murmur, systolic R01.1 Active 12422323 ALLERGIES No Information SOCIAL HISTORY Never Assessed PLAN OF CARE VITAL SIGNS MEDICATIONS Unknown Medications RESULTS No Results PROCEDURES No Known procedures [...]
--- OUTSIDE RECORDS SUMMARY | 2016-12-04 09:07 | XMS REPORT ---
Author Author ANAND KNUTSON [facility] Address [address] [place] [address] Care Team Providers Care Teacher Hearing Impaired Name Role Phone JO-ANNANAND GAGNON Unavailable PROBLEMS Type Condition ICD9-CM Code [id number] Code Onset Dates Condition Status SNOMED Code Problem Attention deficit disorder F98.8 Active 591538945 Problem Cervical disc herniation M50.20 Active 349986715 Problem Allergic rhinitis, unspecified allergic rhinitis trigger, unspecified rhinitis seasonality J30.9 Active 74401271 Problem Lumbar degenerative disc disease M51.36 Active 39964726 Problem Bipolar affective disorder, current episode mixed, current episode severity unspecified F31.60 Active 368739618 Problem PCOS (polycystic ovarian syndrome) E28.2 Active 91455642 Problem Gastroesophageal reflux disease with esophagitis K21.0 Active 991534379 Problem Attention deficit disorder of adult F98.8 Active 090081382 Problem Hypothyroidism (acquired) E03.9 Active 727702111 Problem Heart murmur, systolic R01.1 Active 61382186 Problem Chronic pain syndrome G89.4 Active 644787765 ALLERGIES Unknown Allergies SOCIAL HISTORY No smoking Hx information available PLAN OF CARE VITAL SIGNS MEDICATIONS Unknown Medications RESULTS No Results PROCEDURES No Known procedures IMMUNIZATIONS No Known Immunizations
--- NOTE | 2016-12-04 09:22 | Progress Note-Pre Operative ---
Pre-Operative Progress Note H&P Reviewed The H&P was reviewed, patient examined and no changes noted. Date Seen by Provider: Dec 04, 2016 Time Seen by Provider: : Date H&P Reviewed: Dec 04, 2016 Time H&P Reviewed: : Pre-Operative Diagnosis: symptomatic cholelithiasis PADDY LUBIN DO Dec 04, 2016 9:22 am
[2016-12-04] MEDS ORDERED: ceFAZolin 2 GM/NS 50 ML IV ONE (09:30)
[2016-12-04] MEDS ORDERED: MIDAZOLAM 2 MG/2 ML (VERSED) VIAL IV ONE (10:15)
[2016-12-04] MEDS ORDERED: FAMOTIDINE 20MG/2ML IV (PEPCID) IV ONE (10:15)
[2016-12-04 10:37] VITALS: BP 129/79
[2016-12-04] MEDS ORDERED: BUPIVACAINE 0.5% 30 ML (SENSORCAINE) VIAL ONE (10:38)
[2016-12-04] MEDS ORDERED: LIDOCAINE 1% INJ 20 ML (XYLOCAINE) VIAL ONE (10:38)
[2016-12-04] MEDS: LACTATED RINGERS 1,000 ML IV PRN ×3 (10:43→13:03)
[2016-12-04] MEDS ORDERED: proPOfol 200 MG/20 ML (DIPRIVAN) VIAL IV ONE (11:00)
[2016-12-04] MEDS ORDERED: GLYCOPYRROLATE 0.2 MG/ML (ROBINUL) 2 ML VIAL ONE (11:00)
[2016-12-04] MEDS ORDERED: fentaNYL INJECTION 100 MCG/2 ML AMP ONE (11:00)
[2016-12-04] MEDS ORDERED: MIDAZOLAM 2 MG/2 ML (VERSED) VIAL ONE (11:00)
[2016-12-04] MEDS ORDERED: NEOSTIGMINE (BLOXIVERZ ) 1 MG/1ML 10 ML VIAL ONE (11:00)
[2016-12-04] MEDS ORDERED: LIDOCAINE PF 2% 5 ML (XYLOCAINE) VIAL ONE (11:00)
[2016-12-04] MEDS ORDERED: DEXAMETHASONE 10 MG/ML (DECADRON) 1 ML VIAL ONE (11:00)
[2016-12-04] MEDS ORDERED: ONDANSETRON 4 MG/2 ML (SDV) Z0FRAN ONE ×2 (11:00→12:51)
[2016-12-04] MEDS ORDERED: ROCURONIUM 50 MG/5 ML (ZEMURON) VIAL IV ONE ×2 (11:00→12:35)
[2016-12-04] MEDS ORDERED: SEVOFLURANE (ULTANE) 15 ML INHAL SOLN ONE (11:00)
[2016-12-04] MEDS ORDERED: MEPERIDINE (DEMEROL) INJ 50 MG/ML ONE (12:51)
[2016-12-04] MEDS ORDERED: HYDROmorphone (DILAUDID) 2 MG/ML VIAL ONE (12:57)
[2016-12-04] MEDS: MEPERIDINE (DEMEROL) INJ 50 MG/ML IVP PRN ×2 (12:59→13:05)
--- NOTE | 2016-12-04 12:59 | Progress Note-Post Operative ---
Post-Operative Progess Note Surgeon (s)/Optical Model Maker And Tester (s) Surgeon PADDY LUBIN DO Optical Model Maker And Tester: Dr. Celis Pre-Operative Diagnosis symptomatic cholelithiasis Post-Operative Diagnosis same Procedure & Operative Findings Date of Procedure 12/04/16 Procedure Performed/Findings lap sobia c ioc Anesthesia Type general Estimated Blood Loss Estimated blood loss (mL): min Specimens/Packing Specimens Removed gallbladder PADDY LUBIN DO Dec 04, 2016 12:59
[2016-12-04] MEDS ORDERED: HYDR-3812 PO (13:00)
[2016-12-04] MEDS ORDERED: HYDROcodone/APAP 5 MG/325 MG (LORTAB) TAB PO PRN (13:00)
[2016-12-04] MEDS ORDERED: DOCU-143 PO (13:00)
--- NOTE | 2016-12-04 13:03 | Discharge Inst-Simple/Standard ---
Discharge Inst-Standard Discharge Medications New, Converted or Re-Newed RX: RX on Chart Patient Instructions/Follow Up Plan of Care/Instructions/FU: 2 weeks kim Activity as Tolerated: No Discharge Diet: Regular Diet Other Inst to Patient Follow up Appt: Make appointment for 2 weeks. Instructions: No lifting greater than 10 pounds. No strenuous activity. May shower in 24 hours, no tub bath or soaking. Use incentive spirometer at home as directed. No Smoking Skin/Wound Care: Dermabond a special glue over incisions was used, it will fall off on its own. Symptoms to Report: Appetite Changes, Extremity Discoloration, Numbness/Tingling, Swelling Increased , Bleeding Excessive, Eyesight Changes, Pain Increased, Urine Color Change, Constipation(Persistent), Fever over 101 degree F, Pain/Pressure in chest, Urinating Difficulty, Cough Up/Vomit Blood, Heart Beat Irreg/Pounding, Pain/ Pressure in jaw, Vaginal Bleeding Increase, Cramps in feet or legs, Lightheadedness, Pain/Pressure in shoulder, Diarrhea(Persistent), Memory Changes Suddenly, Questions/Concerns, Weight gain consecutive days, Dizziness/ Fainting, Nausea/Vomiting, Shortness of Breath, Weight gain over 2 pounds. If eyes or skin turn yellow notify physician. If questions or concerns contact your physician Or seek help at emergency department. PADDY LUBIN DO Dec 04, 2016 13:02
[2016-12-04] MEDS: HYDROmorphone (DILAUDID) 2 MG/ML VIAL IVP PRN ×3 (13:10→13:33)
[2016-12-04] MEDS ORDERED: ONDANSETRON 4 MG/2 ML (SDV) Z0FRAN IVP PRN (13:15)
[2016-12-04] MEDS ORDERED: morphine INJ 10 MG/ML 1ML (SYR OR VIAL) IVP PRN (13:15)
[2016-12-04 13:55] VITALS: BP 117/72
[2016-12-04 14:25] VITALS: BP 121/76
[2016-12-04 14:55] VITALS: BP 138/81
--- NOTE | 2016-12-04 21:13 | Diagnostic Imaging Report ---
EXAMINATION: Intraoperative cholangiogram. INDICATION: Abdominal pain. Cholecystectomy performed by Dr. Lopez. 20 seconds of fluoroscopy time was utilized. 8 cc of Omnipaque 300 was utilized. FINDINGS: Good opacification of the CBD is seen with passage of contrast into the duodenum. There is some reflux into the pancreatic duct seen. No filling defect is noted. No evidence of obstruction. IMPRESSION: No evidence of CBD stone or obstruction. Dictated by: Dictated on workstation # [id number]
--- NOTE | 2016-12-05 06:28 | OPERATIVE REPORT ---
DATE OF SERVICE: 12/04/2016 PREOPERATIVE DIAGNOSIS: Symptomatic cholelithiasis. POSTOPERATIVE DIAGNOSIS: Symptomatic cholelithiasis. PROCEDURE: Laparoscopic cholecystectomy with intraoperative cholangiogram. SURGEON: Paddy Lopez DO SILK SCREEN PROCESSOR: Dr. Celis, assisted in retraction, dissection and closure. ANESTHESIA: General. ESTIMATED BLOOD LOSS: Minimal. COMPLICATIONS: None. INDICATIONS: The patient is a 41-year-old female with right upper quadrant abdominal pain. She had radiological studies demonstrating symptoms consistent with symptomatic cholelithiasis. She understands risks and benefits and wishes to proceed with procedure. Consent was signed in the chart. DESCRIPTION OF PROCEDURE: The patient was taken to the operating suite. She was prepped and draped in sterile fashion. Surgical pause was performed. Local anesthetic was used to infiltrate before incisions were made. A 12 mm incision was made at the umbilicus. Cautery was used to dissect down to the fascia, which was then scored and elevated and the abdomen was entered. An 0 Vicryl suture was placed in a [id number] fashion for later closure. The balloon trocar was inserted in the abdomen and pneumoperitoneum was achieved. Under direct visualization of the laparoscope, a 5 mm trocar was then placed in the subxiphoid region and two 5 mm trocars were placed in the right upper quadrant. The gallbladder was then grasped and elevated. There were some adhesions that were taken down. The cystic duct and cystic artery were then dissected out. Clips were placed on the proximal and distal portion of the cystic artery and on the distal portion of the cystic duct. The cystic duct was then partially transected. The Arrow catheter was inserted into the duct and cholangiogram was performed. There were no filling defects. Contrast made its way into the duodenum. The catheter was then removed. Clips were placed on the proximal portion of the cystic duct and then the duct and artery were then completely transected. Hook cautery was used to dissect the gallbladder from the gallbladder fossa achieving hemostasis. Once removed, the gallbladder was placed in an Endobag and removed through the 12 mm trocar site. The abdomen was then irrigated with copious amounts of irrigation. The abdomen was reinspected. Hemostasis had been achieved. The abdomen was then desufflated, the trocars were removed. The fascial defect was closed with the previously placed 0 Vicryl suture. The skin was then closed using 4-0 Vicryl in a subcuticular fashion. The abdomen was washed and dried and Dermabond was placed over the incisions. The patient tolerated the procedure well without any complications. She was taken to recovery room in stable condition. RECOMMENDATIONS: She will follow up in 2 weeks. If she has any problems, she should be reevaluated at that time. Job ID: [id number] DocumentID: [id number] Dictated Date: 12/04/2016 16:32:38 Road Machine Runner Date: 12/05/2016 06:28:08 Dictated By: PADDY LOPEZ DO
== END 2016-12-04 14:55 | disposition home or self-care (01) ==
LOC: SDC 08:47
PROVIDERS: ATTEND Surgery
DX: K80.10 Calculus of gallbladder with chronic cholecystitis without obstruction (principal); E28.2 Polycystic ovarian syndrome; K21.9 Gastro-esophageal reflux disease without esophagitis; F17.210 Nicotine dependence, cigarettes, uncomplicated; Z79.84 Long term (current) use of oral hypoglycemic drugs; Z79.899 Other long term (current) drug therapy
CPT/HCPCS: 84703; 87081; 88304; 94664

== ENCOUNTER 2017-04-30 22:17 | Emergency (ER) | payer SELFPAY ==
[~2017-04-30] VITALS: Ht 165.1 cm; Wt 99.8 kg
[~2017-04-30 22:17] MED LIST changes: +ACHD5005 PO; +DOCU-143 PO; -HYDR-3812 PO; -SERT100T PO; +SERT20OR PO
[2017-04-30] MEDS ORDERED: RX-HYOSCYAMINE 0.125 MG SL (LEVSIN) PPK#6 SL STA (23:18)
[2017-04-30] MEDS ORDERED: RX-ONDANSETRON 4 MG ODT (ZOFRAN) PPK #4 PO STA (23:18)
[2017-04-30] MEDS ORDERED: RX-OSELTAMIVIR 75 MG (TAMIFLU) BOX OF 10 PO STA (23:18)
[2017-04-30] MEDS ORDERED: GUAI1TBM19 PO (23:22)
[2017-04-30] MEDS ORDERED: HYOS0.1283 SL (23:22)
[2017-04-30] MEDS ORDERED: ONDA4TAB8 PO (23:22)
[2017-04-30] MEDS ORDERED: PRD10T PO (23:22)
[2017-04-30] MEDS ORDERED: BENZ-13 PO (23:22)
--- NOTE | 2017-04-30 23:22 | ED Cough/URI ---
General Chief Complaint: Cough/Cold/Flu Symptoms Stated Complaint: HEADACHE, COUGHING, EAR ACHE, LOOSE STOOL Nursing Triage Note: PT PRESENTS TO ER WITH COMPLAINT OF NAUSEA, COUGH, DIARRHEA, AND BODY ACHES. STATES SYMPTOMS STARTED X2 DAYS AGO. Source: patient History of Present Illness Date Seen by Provider: Apr 30, 2017 Time Seen by Provider: 22:42 Initial Comments PT ARRIVES VIA POV FROM HOME C/O PRODUCTIVE COUGH WITH COLORED SPUTUM C/O SUBJECTIVE FEVER/SWEATS/CHILLS C/O BODY ACHES\ C/O HEADACHE C/O NAUSEA AND GENERALIZED ABDOMINAL CRAMPING AND LOOSE STOOLS FEMALE S.O. WITH SIMILAR HAS NOT TAKEN ANYTHING FOR SYMPTOMS DID NOT RECEIVE FLU VACCINATION PCP: [facility] [place] Allergies and Home Medications Allergies Coded Allergies: No Known Drug Allergies (Unverified , 08/23/16) Home Medications Aripiprazole 20 Mg Tablet, 20 MG PO DAILY, (Reported) Benzonatate 100 Mg Capsule, 1-2 TAB PO TID, #30 Prescribed by: PEDRO JENKINS on 04/30/17 2322 Desvenlafaxine Succinate 100 Mg Tab.er.24h, 100 MG PO DAILY, (Reported) Docusate Sodium 100 Mg Capsule, 100 MG PO BID, #60 Prescribed by: PADDY LUBIN on 12/04/16 1300 Guaifenesin/Dextromethorphan 1 Each Tbmp.12hr, 1 EACH PO BID for 10 Days, #20 Prescribed by: PEDRO JENKINS on 04/30/17 2322 Hydrocodone Bit/Acetaminophen 1 Each Tablet, 1 TAB PO Q4H PRN, #30 Ref 0 Prescribed by: PADDY LUBIN on 12/04/16 1300 Hyoscyamine Sulfate 0.125 Mg Tab.subl, 1-2 TAB SL Q4H, #10 Prescribed by: PEDRO JENKINS on 04/30/17 2322 Lamotrigine 200 Mg Tab, 200 MG PO BID, (Reported) Levothyroxine Sodium 50 Mcg Tablet, 50 MCG PO DAILY, (Reported) Metformin HCl 1,000 Mg Tablet, 1,000 MG PO BID, (Reported) Ondansetron 4 Mg Tab.rapdis, 4 MG PO Q4H, #10 Prescribed by: PEDRO JENKINS on 04/30/17 2322 Pantoprazole Sodium 40 Mg Granpkt.dr, 40 MG PO DAILY, (Reported) Prednisone 10 Mg Tab, 40 MG PO DAILY, #12 Prescribed by: PEDRO JENKINS on 04/30/17 4194 Sertraline HCl 100 Mg Tablet, 100 MG PO BID, (Reported) Trazodone HCl 300 Mg Tablet, 300 MG PO HS, (Reported) Constitutional: see HPI, chills, diaphoresis, fever, malaise, weakness EENTM: ear pain, nose congestion Respiratory: see HPI, cough, phlegm, No short of breath, No wheezing Cardiovascular: no symptoms reported, No chest pain Gastrointestinal: see HPI, abdominal pain, diarrhea, loss of appetite, nausea, No vomiting Genitourinary: no symptoms reported : No (HAS FEMALE PARTNER) Musculoskeletal: see HPI (BODY ACHES) Skin: no symptoms reported Psychiatric/Neurological: See HPI, Headache Hematologic/Lymphatic: No Symptoms Reported Immunological/Allergic: no symptoms reported Past Afmbfxw-Ubgdyf-[id number] Hx Patient Social History Alcohol Use: Denies Use Recreational Drug Use: No Smoking Status: Current Everyday Smoker (1 PPD) Type Used: Cigarettes 2nd Hand Smoke Exposure: Yes Recent Foreign Travel: No Contact w/Someone Who Travel: No Recent Infectious Disease Expo: No Recent Hopitalizations: No Immunizations Up To Date Tetanus Booster (TDap): Less than 5yrs Seasonal Allergies Seasonal Allergies: No Surgeries History of Surgeries: Yes ( X 2) Surgeries: Section, Gallbladder Respiratory History of Respiratory Disorde: No Cardiovascular History of Cardiac Disorders: No Neurological History of Neurological Disord: No Reproductive System : No Hx Reproductive Disorders: Yes Female Reproductive Disorders: Ovarian Cyst, Polycystic Ovarian Dis Genitourinary History of Genitourinary Disor: No Gastrointestinal History of Gastrointestinal Di: Yes Gastrointestinal Disorders: Gastroesophageal Reflux, Gall Bladder Disease Musculoskeletal History of Musculoskeletal Dis: No Endocrine History of Endocrine Disorders: Yes Endocrine Disorders: Hypothyroidsim HEENT History of HEENT Disorders: No Cancer History of Cancer: No Psychosocial History of Psychiatric Problem: Yes Behavioral Health Disorders: Sleep Difficulties, Bipolar, Depression Integumentary History of Skin or Integumenta: No (several small scratches and scabs on skin) Blood Transfusions History of Blood Disorders: No Physical Exam Vital Signs Vital Signs - First Documented 04/30/17 22:40 Temp 96.2 Pulse 83 Resp 20 B/P (MAP) 129/81 (97) Pulse Ox 98 O2 Delivery Room Air Capillary Refill : Less Than 3 Seconds General Appearance: WD/WN, no apparent distress HEENT: PERRL/EOMI, pharynx normal, other (NASAL CONGESTION AND CLEAR RHINORRHEA ; TM'S SLIGHTLY INJECTED BILATERALLY) Neck: non-tender, full range of motion, supple, normal inspection Respiratory: no respiratory distress, no accessory muscle use, other (FAINT OCCASIONAL EXPIRATORY WHEEZING BILATERALLY) Cardiovascular: regular rate, rhythm, no edema, no murmur Gastrointestinal: normal bowel sounds, non tender, soft Extremities: normal inspection, normal capillary refill Neurologic/Psychiatric: opener tender II-XII nml as tested, no motor/sensory deficits, alert, normal mood/affect, oriented x 3 Skin: normal color, warm/dry Progress/Results/Core Measures Suspected Sepsis Recent Fever Within 48 Hours: No Infection Criteria Present: None New/Unexplained Altered Menta: No Sepsis Screen: No Definite Risk Sepsis Diagnosis: SIRS Temperature:96.2 Pulse: 83 Respiratory Rate: 20 Blood Pressure 129 /81 Mean: 97 Results/Orders Micro Results Microbiology 04/30/17 Influenza Types A,B Antigen (LUISA) - Final, Complete My Orders Orders - PEDRO JENKINS DO Influenza A And B Antigens (04/30/17 22:42) Rx-Oseltamivir Caps (Rx-Tamiflu Caps) (04/30/17 23:18) Rx-Ondansetron Po (Rx-Zofran Po) (04/30/17 23:18) Rx-Hyoscyamine Tab (Rx-Levsin Sl) (04/30/17 23:18) Benzonatate Capsule (Tessalon Perles) (05/01/17 09:00) Prednisone Tablet (Deltasone Tablet) (04/30/17 23:30) Vital Signs/I&O Vital Sign - Last 12Hours 04/30/17 22:40 Temp 96.2 Pulse 83 Resp 20 B/P (MAP) 129/81 (97) Pulse Ox 98 O2 Delivery Room Air Capillary Refill : Less Than 3 Seconds Blood Pressure Mean: 97 Departure Impression Impression: Primary Impression: Influenza-like illness Disposition: 01 HOME, SELF-CARE Condition: Stable Departure-Patient Inst. Referrals: [facility] (PCP) Primary Care Physician IRENE RENEE (Family) Primary Care Physician Patient Instructions: Flu, Adult (DC) Add. Discharge Instructions: TYLENOL 1 GRAM/ MOTRIN 800 MG 4 TIMES A DAY NEEDED FOR PAIN OR FEVER LOTS OF CLEAR LIQUIDS TAKE TAMIFLU TWICE A DAY X 5 DAYS FOLLOW UP WITH [facility] IN 4-5 DAYS IF NO BETTER All discharge instructions reviewed with patient and/or family. Voiced understanding. Scripts Prednisone (Prednisone) 10 Mg Tab 40 MG PO DAILY, #12 TAB Prov: PEDRO JENKINS DO 04/30/17 Guaifenesin/Dextromethorphan (Mucinex Dm ER 1,200-60 mg Tab) 1 Each Tbmp.12hr 1 EACH PO BID for 10 Days, #20 EA Prov: PEDRO JENKINS DO 04/30/17 Benzonatate (Tessalon Perle) 100 Mg Capsule 1-2 TAB PO TID for Cough, #30 CAP Prov: PEDRO JENKINS DO 04/30/17 Hyoscyamine Sulfate (Levsin-Sl) 0.125 Mg Tab.subl 1-2 TAB SL Q4H for Abdominal Pain, #10 TAB Prov: PEDRO JNEKINS DO 04/30/17 Ondansetron (Zofran Odt) 4 Mg Tab.rapdis 4 MG PO Q4H for Nausea/Vomiting, #10 TAB Prov: PEDRO JENKINS DO 04/30/17 PEDRO JENKINS DO Apr 30, 2017 23:22
[2017-04-30] MEDS ORDERED: predniSONE 10 MG TAB PO ONE (23:30)
[2017-04-30] MEDS ORDERED: BENZONATATE 100 MG (TESSALON) CAPSULE PO ONE (23:35)
[2017-04-30 23:51] VITALS: BP 129/81
[2017-05-01] MEDS ORDERED: BENZONATATE 100 MG (TESSALON) CAPSULE PO SCH (09:00)
== END 2017-04-30 23:51 | disposition home or self-care (01) ==
LOC: EDUNIT# 22:17 → ER 22:20
DX: J11.1 Influenza due to unidentified influenza virus with other respiratory manifestations (principal); E03.9 Hypothyroidism, unspecified; F31.9 Bipolar disorder, unspecified; F17.210 Nicotine dependence, cigarettes, uncomplicated; Z79.84 Long term (current) use of oral hypoglycemic drugs; Z87.59 Personal history of other complications of pregnancy, childbirth and the puerperium; Z87.448 Personal history of other diseases of urinary system
CPT/HCPCS: 87804; 99283